=== PATIENT | male | born 2005 | race Caucasian/White ===

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

== ENCOUNTER 2024-09-28 17:14 | Emergency (ER) | payer OTHER, SELFPAY ==
--- NOTE | 2024-09-28 17:17 | ED_ITS ---
Discharge Plan Disposition Patient Disposition: Home, Self-Care Condition: Good Prescriptions Prescriptions: New fluticasone propionate [Flovent HFA] 220 mcg/actuation HFA aerosol inhaler 1 inh inhalation BID Qty: 12 0RF albuterol sulfate 90 mcg/actuation HFA aerosol inhaler 1 inh inhalation Q4H PRN (Reason: shortness of breath or wheezing) Qty: 8.5 0RF prednisone 50 mg tablet 50 mg PO DAILY 5 Days Qty: 5 0RF No Action azithromycin [Zithromax] 250 mg tablet 250 mg PO UD DOSE PK Qty: 6 0RF Rx Instructions: Take two (2) tablets today, then one (1) tablet days #2 thru #5 Referrals Follow up/Referrals: Provider,MD Rekha [Primary Care Provider] - See instructions Mario Valdez MD [Physician] - See instructions Activity Restrictions/Add. Instructions Additional Instructions/Restrictions: Please order picker/assembler your inhalers. I will also send in steroids. I have referred you to pulmonology. If you have any increasing wheezing difficulty breathing return to the ER as needed. Clinical Impressions Clinical Impression: Asthma exacerbation Qualifiers: Asthma severity: mild Asthma persistence: intermittent Qualified Code(s): J 45.21 - Mild intermittent asthma with (acute) exacerbation Print Language Print Language: Eritrean Discharge ED Provider: Shan Jorgensen General Adult HPI <KOURTNEY Salgado - Last Filed: 09/28/24 19:37> General Chief complaint: Chest Pain Stated complaint: SOA,cough,weakness Time Seen by Provider: 09/28/24 17:16 History of Present Illness HPI narrative: Patient presents for evaluation of cough congestion shortness of breath. Patient states that he originally thought that he was just having seasonal allergies. However he has had progressive and persistent cough to the point where his chest hurts at the end of it. He does not have a known history of asthma and is on no home medications does not currently smoke but does vape. He denies any fever chills hemoptysis hematochezia melena nausea vomiting diarrhea. He is taken no treatments for it. Related Data Previous Rx's ?Medication ?Instructions ?Recorded azithromycin 250 mg tablet 250 mg PO UD DOSE PK #6 tabs 07/24/23 (Zithromax) albuterol sulfate 90 mcg/actuation 1 inh inhalation Q4H PRN shortness 04/30/25 aerosol inhaler of breath or wheezing #8.5 grams fluticasone propionate 220 1 inh inhalation BID #12 grams 09/28/24 mcg/actuation HFA aerosol inhaler (Flovent HFA) prednisone 50 mg tablet 50 mg PO DAILY 5 days #5 tabs 09/28/24 Allergies Allergy/AdvReac Type Severity Reaction Status Date / Time No Known Allergies Allergy Verified 09/30/22 18:51 [facility] <KOURTNEY Salgado - Last Filed: 09/28/24 19:37> [facility] Disclaimer: The information contained in this section may have been updated after the patient was seen, as this information can be updated by other users. Social History (Updated 09/30/22 @ 18:52 by Lisa Eng MD) Smoking Status: Current every day smoker alcohol intake: never current occupational status: other Travel in the last 8 weeks?: None Have you lived/traveled outside [place] in past 30 days?: No Contact w/someone who lives/traveled outside US past 30 days?: No Exposure to someone with infectious disease in past 14 days?: No Do you have a fever (greater than 100.4 F or 38 C)?: No Have you tested positive for COVID-19?: No Exposed to someone with COVID-19 in past 14 days?: No Do you have a sore throat?: No Do you have a cough?: No Do you have any weakness?: No Do you have any diarrhea?: No Are you experiencing any unusual bleeding?: No Do you have any muscle aches/pain?: No Do you have any abdominal pain?: No Are you experiencing loss of taste or smell?: No <KOURTNEY Salgado - Last Filed: 09/28/24 19:37> ROS Obtained: Yes Systems reviewed as appropriate & no additional complaints except as documented Physical Exam <KOURTNEY Salgado - Last Filed: 09/28/24 19:37> General General appearance: alert and in no apparent distress Respiratory Respiratory exam: Present wheezes; Absent accessory muscle use Cardiovascular Cardiovascular exam: Present tachycardia Neurological Exam Neurological exam: Present alert and oriented X3 Medical Decision Making <KOURTNEY Salgado - Last Filed: 09/28/24 19:37> Medical Records Medical records reviewed: Yes I reviewed the patient's medical records. Screening: Per USPSTF and CDC recommendations, given the prevalence of disease in our region, it is our hospital?s policy to screen for HIV and viral Hepatitis for all patients aged 18 and over and those with ongoing risk factors. Brayan Inquiry Pt receiving controlled substance: No Vital Signs: 09/28/24 17:21 09/28/24 17:30 09/28/24 19:00 Temperature 98.6 F Temperature Source Oral Pulse Rate 104 H 100 H Pulse Rate [Left Radial] 106 H Respiratory Rate 19 21 11 L Blood Pressure 131/87 Blood Pressure [Right Arm] 133/70 Blood Pressure Mean [Right Arm] 91 Blood Pressure Position 02 Sat by Pulse Oximetry 95 93 L 100 Oxygen Delivery Method Room Air Room Air 09/28/24 19:01 09/28/24 19:01 09/28/24 19:45 Temperature 98 F Temperature Source Pulse Rate 104 H 104 H 76 Pulse Rate [Left Radial] Respiratory Rate 14 Blood Pressure 118/68 Blood Pressure [Right Arm] Blood Pressure Mean [Right Arm] Blood Pressure Position Sitting 02 Sat by Pulse Oximetry Oxygen Delivery Method Room Air 09/28/24 19:47 Temperature 98.9 F Temperature Source Pulse Rate 119 H Pulse Rate [Left Radial] Respiratory Rate 18 Blood Pressure 107/63 L Blood Pressure [Right Arm] Blood Pressure Mean [Right Arm] Blood Pressure Position 02 Sat by Pulse Oximetry Oxygen Delivery Method Room Air Lab Data Lab results reviewed: Yes I reviewed the patient's lab results. Lab Results 09/28/24 17:38: WBC 9.7, RBC 5.35, Hgb 15.2, Hct 44.6, MCV 83.4, MCH 28.4, MCHC 34.1, RDW 12.0, Plt Count 271, MPV 8.2, Neut % (Auto) 64.4, Lymph % (Auto) 15.4, [place] % (Auto) 7.6, Eos % (Auto) 11.9, Baso % (Auto) 0.4, Neut # (Auto) 6.2, Lymph # (Auto) 1.5, [place] # (Auto) 0.7, Eos # (Auto) 1.2 H, Baso # (Auto) 0.0, PT 10.9, INR 0.97, D-Dimer 0.62 H, Sodium 136, Potassium 3.9, Chloride 102, Carbon Dioxide 28, Anion Gap 9.9, BUN 10, Creatinine 0.90, Estimated Creat Clear 130, Estimated GFR 108, Est GFR ( Amer) 130, Glucose 97, Calcium 10.0, Magnesium 1.8, Total Bilirubin 0.6, AST 29, ALT 23, Alkaline Phosphatase 79, Troponin I < 0.01, NT-Pro-B Natriuret Pep < 20.0, Total Protein 7.7, Albumin 4.9, Globulin 2.8, Albumin/Globulin Ratio 1.8 09/28/24 17:39: VBG pH 7.36, VBG pCO2 47.7, VBG pO2 29.8, VBG HCO3 26.5, VBG Total CO2 28.0 H, VBG O2 Saturation 59.3, VBG Base Excess 1.1, VBG Lactic Acid 1.4 09/28/24 17:42: Chlamy pneumoniae PCR Not detected, Adenovirus (PCR) Not detected, B. pertussis DNA (PCR) Not detected, Coronavirus OC43 (PCR) Not detected, Coronavirus HKU1 (PCR) Not detected, Coronavirus 229E (PCR) Not detected, SARS-CoV-2 (PCR) Not detected, Coronavirus NL63 (PCR) Not detected, Human Metapneumovir PCR Not detected, Influenza A (H1) PCR Not detected, Influ A (H1N1/09) PCR Not detected, Influenza A (H3) PCR Not detected, Influenza Type A (PCR) Not detected, Influenza Type B (PCR) Not detected, M. pneumoniae (PCR) Not detected, Parainfluenza 1 (PCR) Not detected, Parainfluenza 2 (PCR) Not detected, Parainfluenza 3 (PCR) Not detected, Parainfluenza 4 (PCR) Not detected, RSV (PCR) Not detected, Entero/Rhino (PCR) Not detected 09/28/24 17:38 09/28/24 17:38 Orders (Tests/Meds): ED MEDICATIONS Discontinued Medications Generic Name Dose Route Start Last Admin Trade Name Freq PRN Reason Stop Dose Admin Albuterol/Ipratropium 6 ml 09/28/24 18:50 09/28/24 18:57 Ipratropium/Albuterol 3 Ml Neb IH 09/28/24 18:51 6 ml ONCE ONE Administration Magnesium Sulfate 2 gm in 50 mls @ 50 mls/hr 09/28/24 17:32 09/28/24 17:50 Magnesium Sulfate 2gm/50ml Premix IV 09/28/24 18:31 50 mls/hr ONCE ONE Administration Levalbuterol HCl 1.25 mg 09/28/24 17:32 09/28/24 17:50 Levalbuterol 1.25mg/3ml Neb IH 09/28/24 17:33 1.25 mg ONCE ONE Administration Methylprednisolone Sodium Succinate 125 mg 09/28/24 17:32 09/28/24 17:49 Methylprednisolone Sod Succ 125mg Vial IV 09/28/24 17:33 125 mg ONCE ONE Administration ORDERS Category Date Time Status Chest XR 2 view (NOT portable) [XR chest 2V] Stat Exams 09/28/24 17:32 Completed BNP [NT Pro Brain Natriuretic Pep.] Stat Lab 09/28/24 17:38 Completed CBC w/Auto Diff [Complete Blood Count Auto Diff] Stat Lab 09/28/24 17:38 Completed CMP [Comprehensive Metabolic Panel] Stat Lab 09/28/24 17:38 Completed D-Dimer Stat Lab 09/28/24 17:38 Completed Full Resp Panel w/COVID ([facility]) Routine Lab 09/28/24 17:42 Completed INR [Prothrombin Time INR] Stat Lab 09/28/24 17:38 Completed Magnesium Stat Lab 09/28/24 17:38 Completed Trop I [Troponin I] Stat Lab 09/28/24 17:38 Completed VBG [Venous Blood Gas] Stat RT 09/28/24 17:39 Completed Medical Decision Narrative: In summary patient is a 19-year-old male who presents to the emergency department for evaluation of cough congestion shortness of breath. Patient is normotensive initially with a blood pressure 133/70 but tachycardic in the 106 with sinus tachycardia the bedside monitor breathing 19 times a minute satting at 95% on room air upon arrival, afebrile 98.6. Physical exam is remarkable for end expiratory wheezes in all 4 gonzalez however breath sounds heard to bases. He has good air entry.. Differential diagnosis includes COPD versus asthma versus pneumonia versus lower respiratory tract infection etc. Initial workup will be conducted with hematologic labs plain film chest x-ray twelve-lead EKG full respiratory panel. Initial interventions include Tylenol Toradol Solu-Medrol IV magnesium and initially Xopenex. Initial workup reviewed by me and his hematologic labs are nonactionable occluding normal white count with no neutrophilic shift and my informal interpretation of his plain film chest x-ray shows peribronchial cuffing which could be consistent with asthma and/or bronchitis, please see radiology read for formal interpretation. Upon repeat evaluation patient reports feeling not much better and is still wheezing in all 4 gonzalez. Given this I have now ordered 6 mg albuterol ipratropium neb. Upon reassessment after albuterol neb patient's wheezing has diminished tremendously and he feels subjectively better. He still maintaining oxygen saturation above 94%. Given this patient is appropriate for discharge with Flovent and albuterol inhalers along with prednisone 5-day course. I have also referred the patient to pulmonology. Patient given strict return precautions. <Shan Jorgensen MD - Last Filed: 09/28/24 22:58> Vital Signs: 09/28/24 17:21 09/28/24 17:30 09/28/24 19:00 Temperature 98.6 F Temperature Source Oral Pulse Rate 104 H 100 H Pulse Rate [Left Radial] 106 H Respiratory Rate 19 21 11 L Blood Pressure 131/87 Blood Pressure [Right Arm] 133/70 Blood Pressure Mean [Right Arm] 91 Blood Pressure Position 02 Sat by Pulse Oximetry 95 93 L 100 Oxygen Delivery Method Room Air Room Air 09/28/24 19:01 09/28/24 19:01 09/28/24 19:45 Temperature 98 F Temperature Source Pulse Rate 104 H 104 H 76 Pulse Rate [Left Radial] Respiratory Rate 14 Blood Pressure 118/68 Blood Pressure [Right Arm] Blood Pressure Mean [Right Arm] Blood Pressure Position Sitting 02 Sat by Pulse Oximetry Oxygen Delivery Method Room Air 09/28/24 19:47 Temperature 98.9 F Temperature Source Pulse Rate 119 H Pulse Rate [Left Radial] Respiratory Rate 18 Blood Pressure 107/63 L Blood Pressure [Right Arm] Blood Pressure Mean [Right Arm] Blood Pressure Position 02 Sat by Pulse Oximetry Oxygen Delivery Method Room Air Lab Data Lab Results 09/28/24 17:38: WBC 9.7, RBC 5.35, Hgb 15.2, Hct 44.6, MCV 83.4, MCH 28.4, MCHC 34.1, RDW 12.0, Plt Count 271, MPV 8.2, Neut % (Auto) 64.4, Lymph % (Auto) 15.4, [place] % (Auto) 7.6, Eos % (Auto) 11.9, Baso % (Auto) 0.4, Neut # (Auto) 6.2, Lymph # (Auto) 1.5, [place] # (Auto) 0.7, Eos # (Auto) 1.2 H, Baso # (Auto) 0.0, PT 10.9, INR 0.97, D-Dimer 0.62 H, Sodium 136, Potassium 3.9, Chloride 102, Carbon Dioxide 28, Anion Gap 9.9, BUN 10, Creatinine 0.90, Estimated Creat Clear 130, Estimated GFR 108, Est GFR ( Amer) 130, Glucose 97, Calcium 10.0, Magnesium 1.8, Total Bilirubin 0.6, AST 29, ALT 23, Alkaline Phosphatase 79, Troponin I < 0.01, NT-Pro-B Natriuret Pep < 20.0, Total Protein 7.7, Albumin 4.9, Globulin 2.8, Albumin/Globulin Ratio 1.8 09/28/24 17:39: VBG pH 7.36, VBG pCO2 47.7, VBG pO2 29.8, VBG HCO3 26.5, VBG Total CO2 28.0 H, VBG O2 Saturation 59.3, VBG Base Excess 1.1, VBG Lactic Acid 1.4 09/28/24 17:42: Chlamy pneumoniae PCR Not detected, Adenovirus (PCR) Not detected, B. pertussis DNA (PCR) Not detected, Coronavirus OC43 (PCR) Not detected, Coronavirus HKU1 (PCR) Not detected, Coronavirus 229E (PCR) Not detected, SARS-CoV-2 (PCR) Not detected, Coronavirus NL63 (PCR) Not detected, Human Metapneumovir PCR Not detected, Influenza A (H1) PCR Not detected, Influ A (H1N1/09) PCR Not detected, Influenza A (H3) PCR Not detected, Influenza Type A (PCR) Not detected, Influenza Type B (PCR) Not detected, M. pneumoniae (PCR) Not detected, Parainfluenza 1 (PCR) Not detected, Parainfluenza 2 (PCR) Not detected, Parainfluenza 3 (PCR) Not detected, Parainfluenza 4 (PCR) Not detected, RSV (PCR) Not detected, Entero/Rhino (PCR) Not detected Orders (Tests/Meds): ED MEDICATIONS Discontinued Medications Generic Name Dose Route Start Last Admin Trade Name Andie PRN Reason Stop Dose Admin Albuterol/Ipratropium 6 ml 09/28/24 18:50 09/28/24 18:57 Ipratropium/Albuterol 3 Ml [facility] 09/28/24 18:51 6 ml ONCE ONE Administration Magnesium Sulfate 2 gm in 50 mls @ 50 mls/hr 09/28/24 17:32 09/28/24 17:50 Magnesium Sulfate 2gm/50ml Premix IV 09/28/24 18:31 50 mls/hr ONCE ONE Administration Levalbuterol HCl 1.25 mg 09/28/24 17:32 09/28/24 17:50 Levalbuterol 1.25mg/3ml [facility] 09/28/24 17:33 1.25 mg ONCE ONE Administration Methylprednisolone Sodium Succinate 125 mg 09/28/24 17:32 09/28/24 17:49 Methylprednisolone Sod Succ 125mg Vial IV 09/28/24 17:33 125 mg ONCE ONE Administration ORDERS Category Date Time Status Chest XR 2 view (NOT portable) [XR chest 2V] Stat Exams 09/28/24 17:32 Completed BNP [NT Pro Brain Natriuretic Pep.] Stat Lab 09/28/24 17:38 Completed CBC w/Auto Diff [Complete Blood Count Auto Diff] Stat Lab 09/28/24 17:38 Completed CMP [Comprehensive Metabolic Panel] Stat Lab 09/28/24 17:38 Completed D-Dimer Stat Lab 09/28/24 17:38 Completed Full Resp Panel w/COVID ([facility]) Routine Lab 09/28/24 17:42 Completed INR [Prothrombin Time INR] Stat Lab 09/28/24 17:38 Completed Magnesium Stat Lab 09/28/24 17:38 Completed Trop I [Troponin I] Stat Lab 09/28/24 17:38 Completed VBG [Venous Blood Gas] Stat RT 09/28/24 17:39 Completed ECG Data Tracing #1: I reviewed this ECG and interpreted as documented below: Sinus tachycardia at a rate of 102, QTc 355, normal axis, no STEMI Medical Decision Narrative: In summary patient is a 19-year-old male who presents to the emergency department for evaluation of cough congestion shortness of breath. Patient is normotensive initially with a blood pressure 133/70 but tachycardic in the 106 with sinus tachycardia the bedside monitor breathing 19 times a minute satting at 95% on room air upon arrival, afebrile 98.6. Physical exam is remarkable for end expiratory wheezes in all 4 gonzalez however breath sounds heard to bases. He has good air entry.. Differential diagnosis includes COPD versus asthma versus pneumonia versus lower respiratory tract infection etc. Initial workup will be conducted with hematologic labs plain film chest x-ray twelve-lead EKG full respiratory panel. Initial interventions include Tylenol Toradol Solu-Medrol IV magnesium and initially Xopenex. Initial workup reviewed by me and his hematologic labs are nonactionable occluding normal white count with no neutrophilic shift and my informal interpretation of his plain film chest x-ray shows peribronchial cuffing which could be consistent with asthma and/or bronchitis, please see radiology read for formal interpretation. Upon repeat evaluation patient reports feeling not much better and is still wheezing in all 4 gonzalez. Given this I have now ordered 6 mg albuterol ipratropium neb. Upon reassessment after albuterol neb patient's wheezing has diminished tremendously and he feels subjectively better. He still maintaining oxygen saturation above 94%. Given this patient is appropriate for discharge with Flovent and albuterol inhalers along with prednisone 5-day course. I have also referred the patient to pulmonology. Patient given strict return precautions. GAYLA attestation I was consulted by the GAYLA, and we discussed the complexity of problems being addressed. I approved the treatment and management plan for this patient's care in the emergency department, thus performing a substantial portion of the medical decision making. I also evaluated and examined the patient at bedside. On my initial evaluation, the patient had mild respiratory distress and wheezing, however satting appropriately on room air. After treatment as described above, the patient had significant symptomatic improvement. Had a normal respiratory rate, satting greater than 94% on room air with improvement in wheezing. No previously diagnosis of asthma. Appropriate for discharge with albuterol as needed, inhaled corticosteroids, and a 5-day course of prednisone. Shan Jorgensen MD Critical Care <KOURTNEY Salgado - Last Filed: 09/28/24 19:37> Critical Care Time Critical Care Time: Yes Attestation: On 09/28/24, the high probability of a clinically significant, sudden or life threatening deterioration of the following system(s) required my full and direct attention, intervention and personal management. The time I documented below is in addition to time spent performing reported procedures but includes the following listed in this critical care notation. Total Time Total Critical Care Time: 35
[2024-09-28 17:21] VITALS: BP 133/70; PULSE 106; RESP 19; TEMP 37; O2SAT 95; BMI 22.8
--- NOTE | 2024-09-28 17:24 | ECG_ITS ---
APPROVED REPORT Exam: Resting ECG HR:102 bpm ECG Measurements Heart Rate 102 AXES NE 180 P 69 QRSd 91 QRS 78 QT 296 T 1 QTc 355 Conclusion SINUS TACHYCARDIA MINIMAL VOLTAGE CRITERIA FOR LVH, CONSIDER NORMAL VARIANT [MEETS CRITERIA IN ONE OF: R(aVL), S(V1), R(V5), R(V5/V6)+S(V1)] NONSPECIFIC T-WAVE ABNORMALITY Electronically signed by : Shan Jorgensen, 09/29/2024 00:01:34
[2024-09-28 17:30] VITALS: BP 131/87; PULSE 104; RESP 21; O2SAT 93
--- NOTE | 2024-09-28 17:32 | XR_ITS ---
PROCEDURE INFORMATION: Exam: XR Chest Exam date and time: 09/28/2024 5:31 PM Age: 19 years old Clinical indication: Shortness of breath and wheezing; Additional info: Wheezing shortness of breath TECHNIQUE: Imaging protocol: Radiologic exam of the chest. Views: 2 views. COMPARISON: No relevant prior studies available. FINDINGS: Lungs: Pulmonary vasculature grossly normal. Mild pulmonary hyperexpansion which may relate to strong inspiratory effort or possibly asthma/bronchiolitis. No gross pulmonary infiltrates or edema pattern. Pleural spaces: No pleural effusion. No pneumothorax. Heart/Mediastinum: Heart size normal. No tracheal/mediastinal shift. Bones/joints: No acute osseous abnormalities are identified. IMPRESSION: Mild pulmonary hyperexpansion which may relate to strong inspiratory effort or possibly asthma/bronchiolitis. No gross pulmonary infiltrates or edema pattern.
--- NOTE | 2024-09-28 17:39 | PC.NURSE ---
yessi in respiratory aware of vbg order
[2024-09-28 17:45] LABS: Lactate Venous 1.4 mmol/L (0.4-2.0); VBG Base Excess 1.1 mmol/L (-2.4-2.3); VBG HCO3 26.5 mmol/L (23-30); VBG Oxygen Saturation 59.3 % (50-70); VBG PCO2 47.7 mmol/L (35-51); VBG PH 7.36 mmol/L (7.31-7.41); VBG PO2 29.8 mmol/L (28-40)
[2024-09-28 17:47] LABS: Adenovirus,PCR Not Detected (NotDetected); Bordetella Pertussis Not Detected (NotDetected); Chlamydophila Pneumoniae, PCR Not Detected (NotDetected); Coronavirus 19, PCR Not Detected (NotDetected); Coronavirus 229E Not Detected (NotDetected); Coronavirus NL63 Not Detected (NotDetected); Coronavirus OC43 Not Detected (NotDetected); Coronovirus HKU1,PCR Not Detected (NotDetected); Human Metapneumovirus Not Detected (NotDetected); Influenza A, PCR Not Detected (NotDetected); Influenza AH1, 2009 Not Detected (NotDetected); Influenza AH1, PCR Not Detected (NotDetected); Influenza AH3,PCR Not Detected (NotDetected); Influenza B, PCR Not Detected (NotDetected); Mycoplasma Pneumoniae, PCR Not Detected (NotDetected); Parainfluenza 1, PCR Not Detected (NotDetected); Parainfluenza 2, PCR Not Detected (NotDetected); Parainfluenza 3, PCR Not Detected (NotDetected); Parainfluenza 4, PCR Not Detected (NotDetected); Respiratory Syncytial Virus Not Detected (NotDetected); Rhinovirus/Enterovirus Not Detected (NotDetected)
[2024-09-28] MEDS: METHYLPREDNISOLONE SOD SUCC 125MG VIAL 125 MG IV (17:49)
[2024-09-28] MEDS: MAGNESIUM SULFATE IN WATER 2 GM/50 ML PIGGYBACK IV (17:50)
[2024-09-28] MEDS: LEVALBUTEROL 1.25MG/3ML NEB 1.25 MG IH (17:50)
[2024-09-28 17:54] LABS: Albumin Level 4.9 g/dl (3.5-5.0); Chloride 102 mmol/L (98-107); Potassium 3.9 mmoL/L (3.5-5.1); Sodium 136 mmol/L (136-145)
[2024-09-28 17:56] LABS: Blood Urea Nitrogen 10 mg/dl (9-20); Creatinine Clearance Estimated 130 mL/min (50-200); Estimated Glomerular Filt Rate 108 ml/min (>60); GFR (African American) 130 ML/MIN (>60)
[2024-09-28 17:57] LABS: Alanine Aminotransferase 23 U/L (12-78); Albumin/Globulin Ratio 1.8 (1.1-1.8); Alkaline Phosphatase 79 U/L (38-126); Anion Gap 9.9 mEq/L (5-15); Aspartate Amino Transferase 29 U/L (17-59); Bilirubin,Total 0.6 mg/dl (0.2-1.3); Carbon Dioxide 28 mmol/L (22.0-30.0); Globulin 2.8 g/dL (1.3-3.2); Glucose 97 mg/dl (74-100); Magnesium 1.8 mg/dl (1.6-2.3); Total Protein,Serum 7.7 g/dl (6.3-8.2)
[2024-09-28 18:06] LABS: NT Pro Brain Natriuretic Pep. < 20.0 pg/mL (0-125)
[2024-09-28 18:07] LABS: Basophils % 0.4 % (0.1-2.0); Eosinophils # 1.2 Kmm3 (0.0-0.4); Eosinophils % 11.9 % (0.1-12.0); Hematocrit 44.6 % (42.0-52.0); Hemoglobin 15.2 g/dL (14.1-18.0); Lymphocytes # 1.5 K/mm3 (0.7-4.5); Lymphocytes % 15.4 % (10-50); Mean Corpuscular HGB Conc 34.1 g/dL (31.8-35.4); Mean Corpuscular Hemoglobin 28.4 pg (27.0-31.2); Mean Corpuscular Volume 83.4 fl (80-94); Mean Platelet Volume 8.2 fl (7.4-10.4); Monocytes # 0.7 K/mm3 (0.1-1.0); Monocytes % 7.6 % (1.7-9.3); Neutrophils # 6.2 K/mm3 (1.8-7.8); Neutrophils % 64.4 % (37.0-80.0); Nucleated Red Blood Cells # 0 10^3/uL; Nucleated Red Blood Cells % 0 %; Platelet Count 271 K/mm3 (142-424); Red Blood Count 5.35 M/mm3 (4.60-6.20); Red Cell Distribution Width-SD 36.3 fL; White Blood Count 9.7 K/mm3 (4.5-13.0)
[2024-09-28 18:11] LABS: D-Dimer 0.62 ug/mL (0.0-0.5)
[2024-09-28 18:16] LABS: Troponin I < 0.01 ng/ml (0.00-0.034)
[2024-09-28 18:17] LABS: INR 0.97 (0.9-1.1); Prothrombin Time 10.9 seconds (10.1-12.5)
[2024-09-28] MEDS: IPRATROPIUM/ALBUTEROL 3 ML NEB 6 ML IH (18:57)
[2024-09-28 19:00] VITALS: PULSE 100; RESP 11; O2SAT 100
[2024-09-28 19:01] VITALS: PULSE 104
[2024-09-28 19:45] VITALS: BP 118/68; PULSE 76; RESP 14; TEMP 36.6; O2SAT 100
[2024-09-28 19:47] VITALS: BP 107/63; PULSE 119; RESP 18; TEMP 37.2; O2SAT 100
== END 2024-09-28 19:48 | disposition home or self-care (01) ==
PROVIDERS: Physician Assistant; Emergency Provider Student in an Organized Health Care Education/Training Program
DX: J45.21 Mild intermittent asthma with (acute) exacerbation (principal); R00.0 Tachycardia, unspecified
CPT/HCPCS: 71046; 80053; 82803; 83735; 83880; 84484; 85025; 85378; 85610; 87633; 93005; 96365; 96375; 99284; J2919; J3475; J7614